=== PATIENT | female | born 1945 | race Caucasian/White ===

== ENCOUNTER → 2021-01-10 | Outpatient (CLI) | payer MEDICARE, OTHER ==
[~2021-01-10] MED LIST: ATOR20 PO; Crutch1 EACH MISC; LISI20 PO; LISI5 PO; METO25ER PO; Norco 5-325 Ta1 EACH PO; PARO10 PO; WARF5 PO
[2021-01-10 08:23] LABS: Source, Urine Clean Catch
[2021-01-10 11:17] LABS: Appearance, Urine Hazy (Clear); Bilirubin, Urine Neg (Neg); Blood, Urine 2+ (Neg); Color, Urine Yellow (P-Yellow); Glucose Qualitative, Urine Neg (Neg); Ketones, Urine Neg (Neg); Leukocyte Esterase, Urine 3+ (Neg); Nitrite, Urine Neg (Neg); Protein, Urine 1+ (Neg); Urobilinogen, Urine NORM (Normal)
[2021-01-10 12:40] LABS: White Blood Cells, Urine 25-50 /hpf (0-5)
[2021-01-10 12:44] LABS: Amorphous Mod (0-Heavy); Bacteria Mod /hpf; Squamous Epithelial Cells Few /hpf (Few)
== END | disposition home or self-care (01) ==
LOC: LAB SHORT 08:20 → LAB 08:20
PROVIDERS: Internal Medicine
DX: R30.9 Painful micturition, unspecified (principal)
CPT/HCPCS: 81001; 87086